=== PATIENT | male | born 1985 | race Caucasian/White ===

== ENCOUNTER 2024-06-22 13:29 | Inpatient (IN) | payer OTHER ==
[2024-06-22] MEDS ORDERED: BENZOCAINE/MENTHOL (CHLORASEPTIC ) LOZENGE MM PRN (14:03)
[2024-06-22] MEDS ORDERED: guaiFENesin 600 MG TABLET.ER (FP) PO PRN (14:03)
[2024-06-22] MEDS ORDERED: DICYCLOMINE HCL 10 MG CAPSULE PO PRN (14:03)
[2024-06-22] MEDS ORDERED: NICOTINE POLACRILEX 2 MG GUM BUC PRN (14:03)
[2024-06-22] MEDS ORDERED: methaDONE HCL 10 MG TABLET (FOR DETOX USE ONLY) PO PRN (14:03)
[2024-06-22] MEDS ORDERED: BENZONATATE 200 MG CAPSULE PO PRN (14:03)
[2024-06-22] MEDS ORDERED: NALOXONE (NARCAN) HCL 4 MG/0.1 ML SPRAY NS PRN (14:03)
[2024-06-22] MEDS ORDERED: LOPERAMIDE HCL 2 MG CAPSULE PO PRN (14:03)
[2024-06-22 14:31] VITALS: BMI 23.8
[2024-06-22] MEDS: cloNIDine HCL 0.1 MG TABLET PO SCH (17:45)
[2024-06-22] MEDS: ONDANSETRON *ODT* 4 MG TABLET SL PRN (17:46)
[2024-06-22] MEDS: methaDONE HCL 10 MG TABLET (FOR DETOX USE ONLY) PO ONE (17:49)
[2024-06-22] MEDS: PRENATAL VITAMINS W/ FOLIC ACID TABLET (FP) PO SCH (17:51)
[2024-06-22] MEDS: BUPRENORPHINE/NALOXONE 0.5 MG/0.125 MG FILM SL ONE ×2 (18:04→22:15)
[2024-06-22] MEDS: THIAMINE 100 MG TABLET PO SCH (22:15)
[2024-06-22] MEDS: MELATONIN 5 MG TABLETS PO SCH (22:15)
[2024-06-22] MEDS: METHOCARBAMOL 500 MG TABLET PO PRN (22:16)
[2024-06-22] MEDS: MAG HYDROX/AL HYDROX/SIMETH 30 ML UNIT-DOSE CUP PO PRN (22:43)
[2024-06-23] MEDS: TRIMETHOBENZAMIDE HCL 200MG/2ML INJ IM ONE (01:20)
[2024-06-23] MEDS: BUPRENORPHINE/NALOXONE 0.5 MG/0.125 MG FILM SL SCH (09:11)
[2024-06-23] MEDS: NICOTINE 14 MG/24 HOURS TOPICAL PATCH TD SCH (09:14)
[2024-06-23] MEDS: ACETAMINOPHEN 325 MG TABLET (FP) PO PRN (10:24)
[2024-06-23 12:22] LABS: HEMATOCRIT 44.6 % (40.1-51.0); HEMOGLOBIN 14.5 g/dL (13.7-17.5); MCHC 32.5 g/dl (32.3-36.5); MEAN CELL VOLUME 88.7 fl (79.0-92.2); MEAN PLT VOLUME 9.9 fl (9.4-12.4); PLATELET COUNT 333 x10^3/uL (163-337); RDW 13.5 % (12.0-15.6)
[2024-06-23 12:29] LABS: POTASSIUM 3.8 mmol/L (3.5-5.1)
[2024-06-23 12:39] LABS: ALBUMIN 4.4 g/dl (3.4-5.0); BLOOD UREA NITROGEN 14.4 mg/dL (7-18); CALCIUM 9.5 mg/dL (8.5-10.1)
[2024-06-23 12:43] LABS: BILIRUBIN,TOTAL 0.6 mg/dL (0.2-1); CREATININE 1.1 mg/dL (0.55-1.3)
[2024-06-23 12:44] LABS: TOT PROT 7.7 g/dl (6.4-8.2)
[2024-06-23] MEDS: hydrOXYzine PAMOATE 25 MG CAPSULE (FP) PO PRN (13:29)
[2024-06-23] MEDS: BISMUTH SUBSALICYLATE 524 MG/30 ML PO PRN (18:56)
[2024-06-24] MEDS: IBUPROFEN 600 MG TABLET (FP) PO PRN (00:51)
[2024-06-24] MEDS: MAGNESIUM HYDROX 2400MG/30ML ORAL SUSPENSION 30 ML CUP PO PRN (01:12)
[2024-06-24] MEDS: POLYETHYLENE GLYCOL (HEALTHYLAX) 3350 17 GM PACKET PO PRN (06:18)
[2024-06-24] MEDS: PANTOPRAZOLE 40 MG TABLET PO SCH (09:29)
[2024-06-24] MEDS: methaDONE HCL 10 MG TABLET (FOR DETOX USE ONLY) PO ONE (09:29)
[2024-06-24] MEDS: BUPRENORPHINE/NALOXONE 2 MG/0.5 MG FILM PACKET SL SCH (09:37)
[2024-06-24] MEDS: diazePAM 5 MG TABLET PO PRN (22:06)
[2024-06-25] MEDS: IBUPROFEN 400 MG TABLET (FP) PO PRN (03:09)
[2024-06-25] MEDS: BUPRENORPHINE/NALOXONE 4 MG/1 MG FILM PACKET SL SCH (09:24)
[2024-06-25] MEDS: MELATONIN 5 MG TABLETS PO ONE (23:36)
[2024-06-26] MEDS: methaDONE HCL 10 MG TABLET (FOR DETOX USE ONLY) PO ONE (09:25)
[2024-06-26] MEDS: BUPRENORPHINE/NALOXONE 8 MG/2 MG FILM PACKET SL SCH (09:26)
[2024-06-26 20:51] VITALS: RESP 16
[2024-06-27] MEDS: TRIMETHOBENZAMIDE HCL 200MG/2ML INJ IM ONE (01:03)
[2024-06-27 09:37] VITALS: BP 144/82; PULSE 80; TEMP 97.6
[2024-06-27] MEDS: BUPRENORPHINE/NALOXONE 8 MG/2 MG FILM PACKET SL SCH (09:57)
== END 2024-06-27 11:40 | disposition home or self-care (01) | DRG 773 ==
LOC: YASAS 13:29 → Y3N 16:30
PROVIDERS: ADMIT Allergy & Immunology; ATTEND Allergy & Immunology
PROC: HZ2ZZZZ Detoxification Services for Substance Abuse Treatment (ICD-10-PCS; principal; 2024-06-22)
DX: F11.23 Opioid dependence with withdrawal (principal); F10.230 Alcohol dependence with withdrawal, uncomplicated; F17.290 Nicotine dependence, other tobacco product, uncomplicated; F19.24 Other psychoactive substance dependence with psychoactive substance-induced mood disorder; G47.00 Insomnia, unspecified; K21.9 Gastro-esophageal reflux disease without esophagitis
CPT/HCPCS: 36415; 80053; 80305; 80307; 85027; 86780; 93005; 93010; Q0162